=== PATIENT | male | born 1940 ===

== ENCOUNTER 2024-03-04 20:14 | Observation (INO) ==
[2024-03-04 21:10] LABS: ABS Basophils 0.1 10^3/uL (0.0-0.1); ABS Eosinophils 0.2 10^3/uL (0.0-0.5); ABS Lymphocytes 3.4 10^3/uL (1.0-4.8); ABS Neutrophils 9.6 10^3/uL (1.5-7.6); ABS Nucleated RBC 0.01 10^3/ul; Eosinophil % 1.4 %; Hematocrit 45.5 % (38-53); Hemoglobin 15.4 g/dL (13.2-16.3); Lymphocyte % 23.7 %; Mean Corpuscular Hemoglobin 34.5 pg (27-33); Mean Corpuscular Hgb Conc 33.7 g/dL (31-36); Mean Corpuscular Volume 102.3 fL (80-97); Mean Platelet Volume 8.4 fL (7.5-11.2); Nucleated Red Blood Cells % 0.1 %/100WBC (0.0-0.8); Platelet Count 542 10^3/uL (150-450); Red Blood Count 4.45 10^6/uL (4.06-5.63); Red Cell Distribution Width 15.7 % (12-17); White Blood Count 14.2 10^3/uL (3.6-10.2)
[2024-03-04 21:20] LABS: INR 1.47 (0.85-1.14)
[2024-03-04 21:36] LABS: High Sens Troponin Baseline 17 pg/mL (<20)
[2024-03-04 21:48] LABS: ALT 14 U/L (7-52); Albumin 3.9 g/dL (3.2-5.2); Albumin/Globulin Ratio 1.4 (1-3); Alkaline Phosphatase 57 U/L (35-149); Anion Gap 8 mmol/L (2-16); Blood Urea Nitrogen 33 mg/dL (6-24); CO2 Carbon Dioxide 23 mmol/L (22-32); Calcium 9.4 mg/dL (8.6-10.3); Chloride 104 mmol/L (101-111); Creatinine, Serum 1.61 mg/dL (0.67-1.17); Globulin 2.8 g/dL (2-4); Glucose 147 mg/dL (70-100); Sodium 135 mmol/L (135-145); Total Bilirubin 0.5 mg/dL (0.2-1.0); Total Protein 6.7 g/dL (6.4-8.9); eGFR CKD-EPI 41.9 (>60)
[2024-03-04] MEDS: HYDROcodone/ACETAMIN 5/325 mg TAB PO ONE (21:50)
[2024-03-04 22:13] LABS: High Sensitivity Troponin 1 Hr 16 pg/mL (<20)
[2024-03-04] MEDS ORDERED: Sulfur Hexaflouride MICROSPHR 25 MG VIAL IV PRN (22:34)
[2024-03-05 00:34] LABS: Potassium Redraw 4.9 mmol/L (3.5-5.0)
[2024-03-05 00:42] LABS: Cholesterol 157 mg/dL; HDL Cholesterol 34.3 mg/dL; LDL Cholesterol 45 mg/dL; Triglycerides 388 mg/dL
[2024-03-05] MEDS: Labetalol IV 5 MG/ML 20 ml VIAL IV PUSH ONE (00:42)
[2024-03-05 01:29] LABS: Folate 16.45 ng/mL (5.90-24.80); Vitamin B12 271 pg/mL (180-914)
[2024-03-05] MEDS: HYDROcodone/ACETAMIN 5/325 mg TAB PO PRN (03:47)
[2024-03-05 06:15] LABS: .Transferrin 207 mg/dL (203-362); Total Iron Binding Capacity 290 mcg/dL (250-450)
[2024-03-05 06:45] LABS: ABS Eosinophils 0.2 10^3/uL (0.0-0.5); ABS Lymphocytes 2.8 10^3/uL (1.0-4.8); ABS Monocytes 0.9 10^3/uL (0.0-1.1); ABS Neutrophils 9.4 10^3/uL (1.5-7.6); ABS Nucleated RBC 0.01 10^3/ul; Creatinine, Serum 1.45 mg/dL (0.67-1.17); Eosinophil % 1.2 %; Hematocrit 44.4 % (38-53); Hemoglobin 14.7 g/dL (13.2-16.3); Magnesium 2.2 mg/dL (1.9-2.7); Mean Corpuscular Hemoglobin 33.7 pg (27-33); Mean Corpuscular Hgb Conc 33.2 g/dL (31-36); Mean Corpuscular Volume 101.6 fL (80-97); Mean Platelet Volume 8.2 fL (7.5-11.2); Platelet Count 454 10^3/uL (150-450); Potassium 4.8 mmol/L (3.5-5.0); Red Blood Count 4.37 10^6/uL (4.06-5.63); White Blood Count 13.3 10^3/uL (3.6-10.2); eGFR CKD-EPI 47.5 (>60)
[2024-03-05 07:05] LABS: Ferritin 139.5 ng/mL (24-336)
[2024-03-05] MEDS: Isosorbide Mononit ER 60mg TAB PO SCH (09:00)
[2024-03-05] MEDS: CMC:Ranolazine 500 mg TAB ER (NF) PO SCH (09:00)
[2024-03-05] MEDS: Aspirin EC 81 mg TAB.EC (enteric coated) PO SCH (11:19)
[2024-03-05] MEDS: Metoprolol Succinate XL 200 mg TAB PO SCH (11:20)
[2024-03-05] MEDS: COENZYME Q10 PO SCH (11:22)
[2024-03-05] MEDS: CMCS: Rivastigmine 1.5 mg CAP (NF) PO SCH (11:35)
[2024-03-05] MEDS: CMCS: DAPAGLIFLOZIN 10 MG TAB (NF) PO SCH (11:35)
[2024-03-05 14:03] VITALS: BP 120/76
[2024-03-05] MEDS ORDERED: Metoprolol Succinate XL 200 mg TAB PO SCH (19:30)
== END 2024-03-05 16:00 | disposition home or self-care (01) ==
LOC: ED 20:14 → EDHOLD 20:14 → SUATTDRO 22:23 → EDHOLD 03-05 01:55 → MEDTELE 03-05 03:34
PROVIDERS: ADMIT Student in an Organized Health Care Education/Training Program; ATTEND Student in an Organized Health Care Education/Training Program